=== PATIENT | male | born 2000 | race African-American/Black ===

== ENCOUNTER 2022-09-03 00:27 | Emergency (ER) | payer OTHER ==
[~2022-09-03] VITALS: Ht 170.2 cm; Wt 70.0 kg
[2022-09-03] MEDS ORDERED: SODIUM CHLORIDE 0.9% 1,000 ML IV ONE (01:15)
[2022-09-03 02:16] LABS: BASOPHILS % 0.8 % (0.0-2.0); EOSINOPHILS % 3.1 % (0.0-5.0); HEMATOCRIT. 45.5 % (42.0-52.0); HEMOGLOBIN. 15.2 g/dL (14.0-18.0); LYMPHOCYTES % 34.3 % (20.0-50.0); MEAN CORPUSCULAR HEMOGLOBIN 26.5 pg (28.0-32.0); MEAN CORPUSCULAR VOLUME 79.1 fL (80.0-94.0); MONOCYTES % 8.7 % (2.0-8.0); NEUTROPHILS % 53.1 % (40.0-76.0); PLATELET 211 x1000/uL (130-400); RED BLOOD CELL COUNT 5.75 mill/uL (4.7-6.1); RED CELL DISTRIBUTION WIDTH 13.4 % (11.6-14.6)
[2022-09-03 02:37] LABS: CHLORIDE 101 mEq/L (98-107)
[2022-09-03 02:44] LABS: PROTHROMBIN TIME 11.2 sec (9.6-11.0)
[2022-09-03 04:45] VITALS: BP 128/79
== END 2022-09-03 04:59 | disposition home or self-care (01) ==
LOC: ER 00:27
DX: R55 Syncope and collapse (principal); R51.9 Headache, unspecified; J45.909 Unspecified asthma, uncomplicated; Z88.0 Allergy status to penicillin
CPT/HCPCS: 36415; 70450; 70486; 80053; 85025; 85610; 96360; 99285; J7030; Z7610